=== PATIENT | male | born 1995 | race Hispanic/Latino ===

== ENCOUNTER 2019-07-18 13:30 | Emergency (ER) | payer BC ==
--- NOTE | 2019-07-18 15:48 | ER ---
Nurse's Notes [facility] Name: Trevor Corbett Age: 24 yrs Sex: Male : 1995 Arrival Date: 07/18/2019 Time: 13:32 Bed Waiting Private MD: Diagnosis: Presentation: 07/18 14:06 Presenting complaint: Patient states: i have these sores on the back of my neck for 8 tw2 months and they dont drain or itch but i wanted to get them checked out. Transition of care: patient was not received from another setting of care. Onset of symptoms was July 18, 2019. Risk Assessment: Do you want to hurt yourself or someone else? Patient reports no desire to harm self or others. Initial Sepsis Screen: Does the patient meet any 2 criteria? No. Patient's initial sepsis screen is negative. Does the patient have a suspected source of infection? No. Patient's initial sepsis screen is negative. Care prior to arrival: None. 14:06 Method Of Arrival: Ambulatory tw2 14:06 Acuity: PAUL 4 tw2 Triage Assessment: 14:05 General: Appears in no apparent distress. unkempt, Behavior is calm, cooperative, tw2 appropriate for age. Pain: Complains of pain in neck. Derm: Reports sores on the back of my neck for 8 months, they dont itch or drain but i just wanted to get it checked. Historical: - Home Meds: 14:07 None [Active]; tw2 - PMHx: 14:07 None; tw2 - PSHx: 14:07 None; tw2 - Immunization history:: Adult Immunizations. - Social history:: Smoking status: . - Ebola Screening: : Patient denies travel to an Ebola-affected area in the 21 days before illness onset. Vital Signs: 14:07 BP 146 / 79; Pulse 47; Resp 18; Temp 97.8(TE); Pulse Ox 100% on R/A; Weight 99.79 kg tw2 (R); Height 5 ft. 8 in. (172.72 cm); Pain 0/10; 14:07 Body Mass Index 33.45 (99.79 kg, 172.72 cm) tw2 ED Course: 13:32 Patient arrived in ED. as 14:04 Arm band placed on. tw2 14:07 Triage completed. tw2 15:03 [facility] shaun 15:03 Jeremy Rodriguez MD is Attending Physician. shaun Administered Medications: No medications were administered Outcome: 15:46 Patient left the ED. tw2 15:57 Patient left the ED. aa5 Signatures: Marisol Hurt FNP-C FNP-Ckb Martinez, Amelia as Calderon, Audri, RN RN aa5 Senait Sargent RN RN tw2
[2019-07-18 15:53] VITALS: BP 146/79; TEMP 97.8; O2SAT 100
== END 2019-07-18 15:57 | disposition left against medical advice (07) ==
LOC: ER 13:30
DX: Z02.9 Encounter for administrative examinations, unspecified (principal)
CPT/HCPCS: 99281

== ENCOUNTER 2020-10-24 12:07 | Emergency (ER) | payer BC, SELFPAY ==
--- OUTSIDE RECORDS SUMMARY | 2020-10-24 12:10 | XMS REPORT | Continuity of Care Document ---
:1995 Author Organization [facility] t Address [address] [place] [address] Dr. Gonzalez [address] [place] [id number] Care Team Providers Name Role Phone Unavailable Unavailable Unavailable Problems This patient has no known problems. Allergies, Adverse Reactions, Alerts This patient has no known allergies or adverse reactions. Medications This patient has no known medications. Procedures This patient has no known procedures. Results This patient has no known results.
[2020-10-24] MEDS ORDERED: FLUORESCEIN SODIUM 1 MG/WRAP ONE ×2 (14:24)
[2020-10-24] MEDS ORDERED: TETRACAINE HCL 0.5% 4ML OPTH ONE ×2 (14:24)
--- NOTE | 2020-10-24 14:32 | ER ---
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 Coronavirus screen: Client denies travel out of the [place] in the last 14 days. At this time, the client does not indicate any symptoms associated with coronavirus-19. Ebola Screen: Patient denies travel to an Ebola-affected area in the 21 days before illness onset. Initial Sepsis Screen: Does the patient meet any 2 criteria? No. Patient's initial sepsis screen is negative. Does the patient have a suspected source of infection? Yes: Other: L eye No. Patient's initial sepsis screen is negative. Risk Assessment: Do you want to hurt yourself or someone else? Patient reports no desire to harm self or others. Onset of symptoms was October 24, 2020. 12:18 Method Of Arrival: Ambulatory ll1 12:18 Acuity: PAUL 3 ll1 Historical: - Allergies: 12:18 No Known Allergies; ll1 - PMHx: 12:18 None; ll1 - PSHx: 12:18 None; ll1 - Immunization history:: Flu vaccine is not up to date. - Social history:: Smoking status: Patient denies any tobacco usage or history of. Screenin:05 Abuse screen: Denies threats or abuse. Denies injuries from another. Nutritional jl7 screening: No deficits noted. Tuberculosis screening: No symptoms or risk factors identified. Fall Risk None identified. Assessment: 14:05 General: Appears in no apparent distress. uncomfortable, Behavior is calm, cooperative, jl7 appropriate for age. Pain: Complains of pain in left eye Pain currently is 9 out of 10 on a pain scale. Neuro: Level of Consciousness is awake, alert, obeys commands, Oriented to person, place, time, situation. Cardiovascular: Patient's skin is warm and dry. Respiratory: Airway is patent Respiratory effort is even, unlabored, Respiratory pattern is regular, symmetrical. EENT: Eyes are tearing on left eye with foreign body noted in left eye Sclera/Cornea are reddened in left eye. Derm: Skin is pink, warm \T\ dry. Vital Signs: 12:18 BP 145 / 107; Pulse 60; Resp 17; Temp 98.0; Pulse Ox 100% ; Weight 99.79 kg; Height 6 ll1 ft. 0 in. (182.88 cm); Pain 9/10; 14:24 BP 152 / 104; Pulse 62; Resp 15; Pulse Ox 100% ; jl7 12:18 Body Mass Index 29.84 (99.79 kg, 182.88 cm) ll1 Visual Acuity: 14:19 Left Eye Visual acuity 20/50, ; Right Eye Visual acuity 20/400, ; Without Lenses; jl7 baseline ED Course: 12:09 Patient arrived in ED. ds1 12:21 Triage completed. ll1 12:21 Arm band placed on. ll1 14:05 Patient has correct armband on for positive identification. Bed in low position. Call yani light in reach. Side rails up X 1. Pulse ox on. NIBP on. 14:09 Jeremy Botello PA is PHCP. cp 14:09 Osvaldo Malone MD is Attending Physician. cp 14:16 Telly Ann RN is Primary Nurse. jl7 14:19 Assist provider with eye exam of left eye. using fluorescein stain, Performed by Jeremy ARIZA Patient tolerated well. Assist provider with foreign body removal of unknown from left conjunctiva using a slit lamp Set up for procedure. Performed by Jeremy ARIZA Patient tolerated well. 14:29 Laury Hickman MD is Referral Physician. cp 14:51 Patient did not have IV access during this emergency room visit. 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 Exp: jlTam 10/27/2021. Lot #: [id number]. } Route: IM; Site: left deltoid; 14:51 Follow up: Response: No adverse reaction jl7 Outcome: 14:31 Discharge ordered by . zaki 14:51 Discharged to home ambulatory. jl7 14:51 Condition: stable 14:51 Discharge instructions given to patient, Instructed on discharge instructions, follow up and referral plans. medication usage, Demonstrated understanding of instructions, follow-up care, medications, Prescriptions given X 1. 14:52 Patient left the ED. jl7 Signatures: Anaya Ceballos ds1 Jeremy Botello PA PA cp Leal, Jahala RN RN jl7 Luis Fernando Garrido RN RN ll1
--- NOTE | 2020-10-24 14:32 | EDPHYS ---
Physician Documentation [facility] Name: Trevor Corbett Age: 25 yrs Sex: Male : 1995 Arrival Date: 10/24/2020 Time: 12:09 Bed 25 Private MD: ED Physician Osvaldo Malone HPI: 10/24 14:15 This 25 yrs old Male presents to ER via Ambulatory with complaints of Foreign cp Body In Eye. 14:15 The patient is experiencing foreign body sensation, pain, redness, to the left eye. cp Onset: The symptoms/episode began/occurred just prior to arrival. Duration: the symptoms are continuous. Associated signs and symptoms: Pertinent negatives: ear ache, fever, runny nose. Patient wears glasses. Historical: - Allergies: 12:18 No Known Allergies; ll1 - PMHx: 12:18 None; ll1 - PSHx: 12:18 None; ll1 - Immunization history:: Flu vaccine is not up to date. - Social history:: Smoking status: Patient denies any tobacco usage or history of. ROS: 14:17 Constitutional: Negative for chills, fever. cp 14:17 Eyes: Positive for foreign body sensation, redness, of the outer aspect of conjuctiva of left eye. 14:17 ENT: Negative for ear pain, sore throat, difficulty swallowing, difficulty handling secretions. 14:17 Respiratory: Negative for cough, shortness of breath, wheezing. 14:17 Abdomen/GI: Negative for abdominal pain, nausea, vomiting, and diarrhea. 14:17 Skin: Negative for rash. 14:17 All other systems are negative. Exam: 14:18 Head/Face: Normocephalic, atraumatic. cp 14:18 Constitutional: The patient appears in no acute distress, alert, awake, non-toxic, well developed, well nourished. 14:26 Eyes: Periorbital structures: appear normal, Pupils: equal, round, and reactive to cp light and accomodation, Extraocular movements: intact throughout, Conjunctiva: injected, in the left eye, Corneas: abrasion, is not appreciated, foreign body, is not appreciated, a fluorescein strip employed to appreciate the findings, Sclera: abrasion, of the lateral aspect of conjunctiva of left eye, Anterior chamber: normal, no hyphema, Lids and lashes: appear normal, bilaterally. 14:26 ENT: External ear(s): are unremarkable, Nose: is normal, Mouth: Lips: moist, Oral mucosa: moist, Posterior pharynx: Airway: no evidence of obstruction, patent. 14:26 Neck: ROM/movement: is normal, is supple, without pain, no range of motions limitations. 14:26 Skin: no rash present. 14:26 Chest/axilla: Inspection: normal. cp 14:26 Cardiovascular: Rate: normal. 14:26 Respiratory: the patient does not display signs of respiratory distress, Respirations: normal. Vital Signs: 12:18 BP 145 / 107; Pulse 60; Resp 17; Temp 98.0; Pulse Ox 100% ; Weight 99.79 kg; Height 6 ll1 ft. 0 in. (182.88 cm); Pain 9/10; 14:24 BP 152 / 104; Pulse 62; Resp 15; Pulse Ox 100% ; jl7 12:18 Body Mass Index 29.84 (99.79 kg, 182.88 cm) ll1 Visual Acuity: 14:19 Left Eye Visual acuity 20/50, ; Right Eye Visual acuity 20/400, ; Without Lenses; jl7 baseline MDM: 14:15 Patient medically screened. cp 14:29 Differential diagnosis: Corneal abrasion of left eye. Corneal ulcer of left eye. cp Foreign body in left eye. Chemical conjunctivitis in Allergic conjunctivitis in Infectious conjunctivitis in. Data reviewed: vital signs, nurses notes, and as a result, I will discharge patient. Response to treatment: the patient's symptoms have markedly improved after treatment, and as a result, I will discharge patient. 10/24 14:23 Order name: Eye Tray; Complete Time: :24 10/24 14:23 Order name: Fluoresene Opth strip; Complete Time: :24 Administered Medications: 14:15 Drug: Tetracaine Drops 0.5 % 1 drops {Note: administered by PA. 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 Exp: jl7 10/27/2021. Lot #: [id number]. } Route: IM; Site: left deltoid; 14:51 Follow up: Response: No adverse reaction jl7 Disposition: 14:35 Chart complete. cp 10/25 07:30 Co-signature as Attending Physician, Osvaldo Malone MD I agree with the assessment and kdr plan of care. Disposition: 10/24/20 14:31 Discharged to Home. Impression: Foreign body in other and multiple parts of external eye, left eye. - Condition is Stable. - Discharge Instructions: Eye Foreign Body. - Prescriptions for Gentamicin 0.3 % Ophthalmic Drops - instill 1 drop by OPHTHALMIC route every 4 hours for 7 days instill drops in left eye as directed; 1 bottle. - Medication Reconciliation Form, Thank You Letter, Antibiotic Education, Prescription Opioid Use form. - Follow up: Laury Hickman MD; When: 1 - 2 days; Reason: Recheck today's complaints. - Problem is new. - Symptoms have improved. Signatures: Osvaldo Malone MD MD kdr Jeremy Botello PA PA cp Telly Ann RN RN jl7 Luis Fernando Garrido RN RN ll1 Corrections: (The following items were deleted from the chart) 10/24 14:52 14:31 10/24/2020 14:31 Discharged to Home. Impression: Foreign body in other and jl7 multiple parts of external eye, left eye. Condition is Stable. Forms are Medication Reconciliation Form, Thank You Letter, Antibiotic Education, Prescription Opioid Use. Follow up: Laury Hickman; When: 1 - 2 days; Reason: Recheck today's complaints. Problem is new. Symptoms have improved. cp
[2020-10-24] MEDS ORDERED: TETANUS & DIPHTHERIA TOX,ADULT 0.5 ML VIAL ONE (15:01)
[2020-10-24] MEDS ORDERED: GENTAMICIN 0.3% OPTH DROP 5ML ONE (15:01)
[2020-10-24 15:04] VITALS: TEMP 98; O2SAT 100
[2020-10-24 15:05] VITALS: BP 152/104
== END 2020-10-24 14:52 | disposition home or self-care (01) ==
LOC: ER 12:07
DX: T15.82XA Foreign body in other and multiple parts of external eye, left eye, initial encounter (principal); Z23 Encounter for immunization
CPT/HCPCS: 90471; 90714; 99284

== ENCOUNTER 2024-03-17 09:12 | Emergency (ER) | payer OTHER ==
--- OUTSIDE RECORDS SUMMARY | 2024-03-17 09:15 | XMS REPORT | Continuity of Care Document ---
Author Name Unknown Address [address] [place] [address] [employer] Address [address] [place] [id number] Care Team Providers Care Public Health Director Name Role Phone Unavailable Unavailable Unavailable
[2024-03-17 09:40] LABS: Absolute Eosinophils 0.2 K/uL (0-0.5); Absolute Lymphocytes (CBC) 1.6 K/uL (0.7-4.9); Absolute Monocytes 1.1 K/uL (0.1-1.3); Basophils % 0.3 % (0-1.3); Eosinophils % 1.6 % (0-4.4); Hemoglobin 17.2 g/dL (13.6-17.9); Lymphocytes % 16.4 % (15.3-44.8); MCH 30.8 pg (27.0-35.0); MCHC 34.4 g/dL (32.0-36.0); MCV 89.5 fL (80-100); Monocytes % 11.3 % (3.3-12.3); Neutrophils % 70.4 % (41.7-73.7); Platelets 325 thou/uL (152-406); RBC Red Blood Cell Count 5.59 M/uL (4.33-5.43); Red Cell Distribution Width 13.7 % (12.1-15.2)
[2024-03-17 10:07] LABS: Anion Gap 8.5 mEq/L (5.0-15.0); Bilirubin Total 0.6 mg/dL (0.2-1.0); Potassium 3.5 mEq/L (3.5-5.1)
--- NOTE | 2024-03-17 10:22 | RAD REPORT ---
EXAM DESCRIPTION: CT - Abdomen Pelvis W Contrast - 03/17/2024 9:57 am CLINICAL HISTORY: Abdominal pain COMPARISON: none. TECHNIQUE: Computed axial tomography of the abdomen pelvis was obtained. 100 cc Isovue-300 was admin istered intravenously. Oral contrast was not requested which limits evaluation of bowel and appendix All CT scans are performed using dose optimization technique as appropriate and may include automated exposure control or mA/KV adjustment according to patient size. FINDINGS: The liver, spleen, pancreas, adrenal and kidneys appear unremarkable. There is no evidence of diverticulitis. Normal appendix Small right inguinal hernia Fluid within nondilated large and small bowel Contracted gallbladder IMPRESSION: Fluid within nondilated large and small bowel may indicate an enteritis
[2024-03-17] MEDS ORDERED: CIPROFLOXACIN 400mg IV 400 MG/200 ML BAG IV ONE (10:57)
--- NOTE | 2024-03-17 10:59 | ER ---
Nurse's Notes [facility] Name: Trevor Corbett Age: 28 yrs Sex: Male : 1995 Arrival Date: 03/17/2024 Time: 09:12 Bed 3 Private MD: Diagnosis: Gastroenteritis, foodborne illness, abdominal pain Presentation: 03/17 09:17 Chief complaint: Patient states: Pt states went to [place] on Thursday and since ko1 returning has been having diarrhea and stomach pain. Pt denies N/V. Coronavirus screen: At this time, the client does not indicate any symptoms associated with coronavirus-19. Ebola Screen: No symptoms or risks identified at this time. Initial Sepsis Screen: Does the patient meet any 2 criteria? Does the patient have a suspected source of infection? No. Patient's initial sepsis screen is negative. Risk Assessment: Do you want to hurt yourself or someone else? Patient reports no desire to harm self or others. Onset of symptoms is unknown. 09:17 Method Of Arrival: Ambulatory ko1 09:17 Acuity: PAUL 3 ko1 Triage Assessment: 09:21 General: Appears in no apparent distress. Behavior is calm, cooperative, appropriate ko1 for age. Pain: Complains of pain in abdomen Pain currently is 5 out of 10 on a pain scale. GI: Abdomen is non-distended, Reports lower abdominal pain, upper abdominal pain, cramping, diarrhea. Historical: - Allergies: 09:32 No Known Allergies; ph - Home Meds: 09:21 None [Active]; ko1 - PMHx: 09:21 None; ko1 - PSHx: 09:21 None; ko1 - Immunization history:: Adult Immunizations unknown. - Infectious Disease History:: Denies. - Social history:: Smoking status: Patient denies any tobacco usage or history of. Screenin:00 [facility] ED Fall Risk Assessment (Adult) History of falling in the last 3 months, ph including since admission No falls in past 3 months (0 pts) Confusion or Disorientation No (0 pts) Intoxicated or Sedated No (0 pts) Impaired Gait No (0 pts) Mobility Assist Device Used No (0 pt) Altered Elimination No (0 pt) Score/Fall Risk Level 0 - 2 = Low Risk Oriented to surroundings, Maintained a safe environment, Hourly rounding (assess needs \T\ fall precautionary measures) done. Abuse screen: Denies threats or abuse. Denies injuries from another. Nutritional screening: No deficits noted. Tuberculosis screening: No symptoms or risk factors identified. Assessment: 09:30 General: Appears in no apparent distress. Behavior is calm, cooperative, Denies fever, ph chills. Pain: Complains of pain in abdomen. Neuro: Level of Consciousness is awake, alert, obeys commands, Oriented to person, place, time, situation. Cardiovascular: Capillary refill < 3 seconds in bilateral fingers Patient's skin is warm and dry. Respiratory: Airway is patent Respiratory effort is even, unlabored. GI: Abdomen is non-distended, Bowel sounds present X 4 quads. Abd is soft X 4 quads Reports lower abdominal pain, upper abdominal pain, diarrhea, Patient currently denies nausea, vomiting. : No signs and/or symptoms were reported regarding the genitourinary system. Derm: Skin is pink, warm \T\ dry. 11:04 Reassessment: Patient appears in no apparent distress at this time. Patient and/or ph family updated on plan of care and expected duration. Pain level reassessed. Patient is alert, oriented x 3, equal unlabored respirations, skin warm/dry/pink. D/C pending completion of IV antibiotics. 11:38 Reassessment: Patient and/or family updated on plan of care and expected duration. Pain rs5 level reassessed. Patient is alert, oriented x 3, equal unlabored respirations, skin warm/dry/pink. Patient states feeling better. Vital Signs: 09:17 BP 159 / 104; Pulse 77; Resp 16; Temp 96.9; Pulse Ox 100% ; Weight 99.79 kg; Height 5 ko1 ft. 8 in. ; 10:00 BP 154 / 109; Pulse 80; Resp 18; Pulse Ox 100% on R/A; ph 11:04 BP 157 / 108; Pulse 67; Resp 18; Temp 97.5; Pulse Ox 100% on R/A; ph 11:38 BP 155 / 102; Pulse 72; Resp 17; Pulse Ox 99% on R/A; rs5 09:17 Body Mass Index 33.45 (99.79 kg, 172.72 cm) ko1 ED Course: 09:15 Patient arrived in ED. mg5 09:16 Russel Perez MD is Attending Physician. sp3 09:21 Triage completed. ko1 09:21 Arm band placed on left wrist. Patient placed in an exam room, on a stretcher, on pulse ko1 oximetry, Patient notified of wait time. 09:24 Johanne Botello RN is Primary Nurse. ph 09:32 Initial lab(s) drawn, by me, sent to lab. Inserted saline lock: 20 gauge in right ph antecubital area, using aseptic technique. Blood collected. Flushed with 10 mL NS. 09:33 CBC with Diff Sent. ph 09:33 CMP Sent. ph 09:33 Lipase Sent. ph 09:59 CT Abd/Pelvis - IV Contrast Only In Process Unspecified. EDMS 10:00 Patient has correct armband on for positive identification. Bed in low position. Call ph light in reach. Side rails up X 1. Pulse ox on. NIBP on. Door closed. Noise minimized. 11:04 No provider procedures requiring assistance completed. ph 11:38 IV discontinued, intact, bleeding controlled, No redness/swelling at site. Pressure rs5 dressing applied. Administered Medications: 09:33 Drug: NS 0.9% IV 1000 ml IV at 1 bolus Per protocol; 1000 mL bolus Route: IV; Rate: 1 ph bolus; Site: right antecubital; 11:03 Follow up: Response: No adverse reaction; IV Status: Completed infusion; IV Intake: ph 1000ml 11:03 Drug: Ciprofloxacin IVPB 400 mg 200 ml IVPB once over 60 mins Volume: 200 ml; Route: ph IVPB; Infused Over: 60 mins; Site: right antecubital; 11:38 Follow up: IV Status: Completed infusion rs5 Medication: 10:00 VIS not applicable for this client. ph Intake: 11:03 IV: 1000ml; Total: 1000ml. ph Outcome: 10:58 Discharge ordered by . sp3 11:38 Discharged to home ambulatory, rs5 11:38 Condition: stable 11:38 Discharge instructions given to patient, family, Instructed on discharge instructions, follow up and referral plans. medication usage, Demonstrated understanding of instructions, follow-up care, medications, Prescriptions given X 3, 11:39 Patient left the ED. rs5 Signatures: Dispatcher [employer] EDIN Johanne Botello, RN RN ph Russel Perez MD MD sp3 Niya Sena RN RN ko1 Marek Schwartz, RN RN rs5 Marielena Garcias mg5
--- NOTE | 2024-03-17 10:59 | EDPHYS ---
Physician Documentation [facility] Name: Trevor Corbett Age: 28 yrs Sex: Male : 1995 Arrival Date: 03/17/2024 Time: 09:12 Bed 3 Private MD: ED Physician Russel Perez HPI: 03/17 09:59 This 28 yrs old Male presents to ER via Ambulatory with complaints of sp3 Abdominal Pain. 09:59 28-year-old male with no past medical history presents with diffuse abdominal pain, sp3 vomiting and diarrhea since visiting [place] approximately 1 week ago. Patient states his cramps have progressively gotten worse coupled with watery diarrhea. He denies any bleeding, fever, or any other symptoms. Remainder of ROS negative.. Historical: - Allergies: :32 No Known Allergies; ph - Home Meds: 09:21 None [Active]; ko1 - PMHx: 09:21 None; ko1 - PSHx: 09:21 None; ko1 - Immunization history:: Adult Immunizations unknown. - Infectious Disease History:: Denies. - Social history:: Smoking status: Patient denies any tobacco usage or history of. ROS: 09:59 Constitutional: Negative for fever, chills, and weight loss, Eyes: Negative for injury, sp3 pain, redness, and discharge, Neck: Negative for injury, pain, and swelling, Cardiovascular: Negative for chest pain, palpitations, and edema, Respiratory: Negative for shortness of breath, cough, wheezing, and pleuritic chest pain, Back: Negative for injury and pain, MS/Extremity: Negative for injury and deformity, Skin: Negative for injury, rash, and discoloration, Neuro: Negative for headache, weakness, numbness, tingling, and seizure, Psych: Negative for depression, anxiety, suicide ideation, homicidal ideation, and hallucinations, Allergy/Immunology: Negative for hives, rash, and allergies, Endocrine: Negative for neck swelling, polydipsia, polyuria, polyphagia, and marked weight changes, 09:59 All other systems are negative, Exam: :59 Constitutional: This is a well developed, well nourished patient who is awake, alert, sp3 and in no acute distress. Head/Face: Normocephalic, atraumatic. Eyes: Pupils equal round and reactive to light, extra-ocular motions intact. Lids and lashes normal. Conjunctiva and sclera are non-icteric and not injected. Cornea within normal limits. Periorbital areas with no swelling, redness, or edema. Neck: Trachea midline, no thyromegaly or masses palpated, and no cervical lymphadenopathy. Supple, full range of motion without nuchal rigidity, or vertebral point tenderness. No Meningismus. Chest/axilla: Normal chest wall appearance and motion. Nontender with no deformity. No lesions are appreciated. Cardiovascular: Regular rate and rhythm with a normal S1 and S2. No gallops, murmurs, or rubs. Normal PMI, no JVD. No pulse deficits. Respiratory: Lungs have equal breath sounds bilaterally, clear to auscultation and percussion. No rales, rhonchi or wheezes noted. No increased work of breathing, no retractions or nasal flaring. Back: No spinal tenderness. No costovertebral tenderness. Full range of motion. Skin: Warm, dry with normal turgor. Normal color with no rashes, no lesions, and no evidence of cellulitis. MS/ Extremity: Pulses equal, no cyanosis. Neurovascular intact. Full, normal range of motion. Neuro: Awake and alert, GCS 15, oriented to person, place, time, and situation. Cranial nerves II-XII grossly intact. Motor strength 5/5 in all extremities. Sensory grossly intact. Cerebellar exam normal. Normal gait. Psych: Awake, alert, with orientation to person, place and time. Behavior, mood, and affect are within normal limits. 09:59 Abdomen/GI: Diffuse abdominal pain without peritoneal signs, rebound or guarding., Vital Signs: 09:17 BP 159 / 104; Pulse 77; Resp 16; Temp 96.9; Pulse Ox 100% ; Weight 99.79 kg; Height 5 ko1 ft. 8 in. ; 10:00 BP 154 / 109; Pulse 80; Resp 18; Pulse Ox 100% on R/A; ph 11:04 BP 157 / 108; Pulse 67; Resp 18; Temp 97.5; Pulse Ox 100% on R/A; ph 11:38 BP 155 / 102; Pulse 72; Resp 17; Pulse Ox 99% on R/A; rs5 09:17 Body Mass Index 33.45 (99.79 kg, 172.72 cm) ko1 MDM: 09:17 Patient medically screened. sp3 10:00 Data reviewed: vital signs, nurses notes, lab test result(s), radiologic studies. ED sp3 course: 28-year-old male with no past medical presents with GI type symptoms. Differential diagnosis is broad and includes gastroenteritis, viral syndrome, other surgical abdominal pathology, abdominal cramping, functional abdominal pain, among others. Workup will include CT scan of the abdomen pelvis, laboratory values, UA and general supportive care with normal saline 1 L at the moment. Patient declined any pain medication at this time. Disposition pending workup and patient course with probable discharge if workup is negative on p.o. antibiotics.. 10:57 ED course: CT positive for diarrheal illness. Laboratory values are normal. Patient sp3 feels better. Will give IV ciprofloxacin 1 dose and discharge patient home on p.o. meds.. 03/17 09:25 Order name: CBC with Diff; Complete Time: 10: sp3 03/17 09:25 Order name: CMP; Complete Time: 10: sp3 03/17 09:25 Order name: Lipase; Complete Time: 10: sp3 03/17 09:28 Order name: CT Abd/Pelvis - IV Contrast Only; Complete Time: 10: sp3 03/17 09:25 Order name: IV Saline Lock; Complete Time: 09:33 sp3 03/17 09:25 Order name: Labs collected and sent; Complete Time: 09:33 sp3 Administered Medications: 09:33 Drug: NS 0.9% IV 1000 ml IV at 1 bolus Per protocol; 1000 mL bolus Route: IV; Rate: 1 ph bolus; Site: right antecubital; 11:03 Follow up: Response: No adverse reaction; IV Status: Completed infusion; IV Intake: ph 1000ml 11:03 Drug: Ciprofloxacin IVPB 400 mg 200 ml IVPB once over 60 mins Volume: 200 ml; Route: ph IVPB; Infused Over: 60 mins; Site: right antecubital; 11:38 Follow up: IV Status: Completed infusion rs5 Disposition Summary: 03/17/24 10:58 Discharge Ordered Notes: Location: Home sp3 Condition: Stable sp3 Diagnosis - Gastroenteritis, foodborne illness, abdominal pain sp3 Followup: sp3 - With: Private Physician - When: Upon discharge from the Emergency Department - Reason: Continuance of care Discharge Instructions: - Discharge Summary Sheet sp3 - Diarrhea, Adult sp3 Forms: - Medication Reconciliation Form sp3 - Antibiotic Education sp3 - Prescription Opioid Use sp3 - Patient Portal Instructions sp3 - Leadership Thank You Letter sp3 - Work release form rs5 Prescriptions: - Cipro 500 mg Oral Tablet - take 1 tablet ORAL route every 12 hours for 10 days; 20 tablet; Refills: 0, sp3 Product Selection Permitted - Flagyl 500 mg Oral Tablet - take 1 tablet ORAL route every 8 hours for 10 days; 30 tablet; Refills: 0, sp3 Product Selection Permitted - ondansetron 8 mg Oral Tablet,disintegrating - take 1 tablet ORAL route every 12 hours; 20 tablet; Refills: 0, Product sp3 Selection Permitted Signatures: Dispatcher [employer] EDMS Johanne Botello RN RN Russel Soto MD MD sp3 Niya Sena RN RN ko1 Marek Schwartz RN rs5 Corrections: (The following items were deleted from the chart) 09:25 09:25 CBC+H.LAB.BRZ ordered. EDMS EDMS 09:25 09:25 COMPREHENSIVE METABOLIC PANEL+C.LAB.BRZ ordered. EDMS EDMS 09:25 09:25 LIPASE+C.LAB.BRZ ordered. EDMS EDMS 09:25 09:25 Urinalysis+U.LAB.BRZ ordered. EDMS EDMS
[2024-03-17 12:05] VITALS: TEMP 97.5
[2024-03-17 12:06] VITALS: BP 155/102; O2SAT 99
== END 2024-03-17 11:39 | disposition home or self-care (01) ==
LOC: ER 09:12
DX: K52.9 Noninfective gastroenteritis and colitis, unspecified (principal); A05.9 Bacterial foodborne intoxication, unspecified
CPT/HCPCS: 96365; 96361; 85025; 36415; 83690; 80053; 74177; 99284; Q9967; J0744